=== PATIENT | female | born 1980 | race Caucasian/White ===

== ENCOUNTER 2018-09-15 01:15 | Inpatient (IN) | payer BC ==
[2018-09-15] MEDS ORDERED: METHYLPREDNISOLONE INJ 125 MG/2 ML SDV IV ONE (02:40)
[2018-09-15] MEDS ORDERED: NORMAL SALINE 1000 ML 1,000 ML IV ONE (02:40)
[2018-09-15] MEDS ORDERED: IPRATROPIUM/ALBUTEROL 0.5-2.5 MG/3 ML AMPUL NEB ONE ×2 (02:41→04:28)
[2018-09-15] MEDS: MAGNESIUM SULFATE/D5W 1 GM/100 ML RTUPB IV SCH ×2 (03:22→04:05)
[2018-09-15 03:26] LABS: ABSOLUTE BASOPHILS # (AUTO) 0.1 10^3/uL (0.0-0.2); ABSOLUTE EOSINOPHILS # (AUTO) 0.7 10^3/uL (0.0-0.6); ABSOLUTE LYMPHOCYTES (AUTO) 2.1 10^3/uL (0.5-4.7); ABSOLUTE MONOCYTES (AUTO) 0.9 10^3/uL (0.1-1.4); ABSOLUTE NEUT (AUTO) 9.2 10^3/uL (1.7-8.2); BASOPHILS % (AUTO) 0.7 % (0-2); EOSINOPHILS % (AUTO) 5.2 % (0-6); HEMATOCRIT 42.3 % (36.0-47.0); HEMOGLOBIN 14.7 g/dL (12.0-15.5); LYMPHOCYTES % (AUTO) 15.9 % (13-45); MEAN CORPUSCULAR HEMOGLOBIN 32.1 pg (27.0-33.4); MEAN CORPUSCULAR HGB CONC 34.7 g/dL (32.0-36.0); MEAN CORPUSCULAR VOLUME 92 fl (80-97); MONOCYTES % (AUTO) 7.2 % (3-13); PLATELET COUNT 410 10^3/uL (150-450); RED BLOOD COUNT 4.58 10^6/uL (3.72-5.28); RED CELL DISTRIBUTION WIDTH 14.4 % (11.5-14.0); TOTAL CELLS COUNTED % (AUTO) 100 %; WHITE BLOOD COUNT 12.9 10^3/uL (4.0-10.5)
--- NOTE | 2018-09-15 03:56 | RADIOLOGY REPORT (SQ) ---
EXAM DESCRIPTION: XR CHEST 2 VIEWS COMPLETED DATE/TME: 09/15/2018 02:40 CLINICAL HISTORY: 37 years, Female, wheezing diffiuclty breathing COMPARISON: None. NUMBER OF VIEWS: 2 TECHNIQUE: Frontal and lateral views of the chest LIMITATIONS: None. FINDINGS: Heart size is normal. Lungs are clear. No pneumothorax IMPRESSION: Negative chest 2010 [facility] [employer]- All Rights Reserved
[2018-09-15 04:20] LABS: ANION GAP 14 (5-19); BLOOD UREA NITROGEN 12 mg/dL (7-20); CALCIUM 9.8 mg/dL (8.4-10.2); CARBON DIOXIDE 33 mmol/L (22-30); CHLORIDE 94 mmol/L (98-107); GLUCOSE 105 mg/dL (75-110); POTASSIUM 4.1 mmol/L (3.6-5.0); SODIUM 141.4 mmol/L (137-145)
[2018-09-15] MEDS ORDERED: ACETAMINOPHEN 325 MG TABLET PO ONE (04:25)
[2018-09-15] MEDS ORDERED: OSELTAMIVIR PHOSPHATE 75 MG CAPSULE PO ONE (04:59)
[2018-09-15 05:01] LABS: A TYPE INFLUENZA AG NEGATIVE (NEGATIVE); B INFLUENZA AG NEGATIVE (NEGATIVE)
--- NOTE | 2018-09-15 05:01 | ER Document Report ---
ED General - General Chief Complaint: Flu Symptoms Stated Complaint: FLU LIKE SYMPTOMS Time Seen by Provider: 09/15/18 02:17 Notes: Patient is a 37-year-old female presents with complaint of difficulty breathing and wheezing. Patient has history of asthma. She says for about a week she has been sick with what has been like flulike symptoms. She with urgent care today. She was evaluated told she had flu but she was outside the window for Tamiflu. She went home and then denies to have worsening difficulty breathing not responding to inhaler. She comes in with distress and hypoxia and feeling very short of breath. She also has a history of hypertension. She is followed by [facility] and [place]. TRAVEL OUTSIDE OF THE [place] IN LAST 30 DAYS: No - Related Data Allergies/Adverse Reactions: No Known Allergies Allergy (Unverified 09/15/18 01:19) Past Medical History - Social History Smoking Status: Never Smoker Frequency of alcohol use: None Drug Abuse: None Family History: Reviewed & Not Pertinent Patient has suicidal ideation: No Patient has homicidal ideation: No - Past Medical History Cardiac Medical History: Reports: Hx Hypertension Renal/ Medical History: Denies: Hx Peritoneal Dialysis Past Surgical History: Reports: Hx Oral Surgery Physical Exam - Vital signs Vitals: Temp Pulse Resp BP Pulse Ox 98.2 F 78 18 130/76 H 90 L 09/15/18 01:19 09/15/18 01:19 09/15/18 01:19 09/15/18 01:19 09/15/18 01:19 Course - Re-evaluation Re-evalutation: 09/15/18 04:55 Reevaluate the patient after initial breathing treatments. Her oxygenation was better but she still had increased work of breathing and diffuse wheezing. Give another breathing treatment. Her wheezing is improving now. She still has some increased work of breathing but is not quite as bad as it was before. Her oxygen saturations about 93% at rest. She still does not look to the point where I feel comfortable discharging her home as she still has some increased work of breathing and still has some wheezing diffusely. She does look much better than when she first arrived as she was in significant distress when she first arrived and was hypoxic. I will consult the hospitalist for consideration for admission. 09/15/18 04:59 I spoke with the hospitalist, Dr. Jean, agrees to admit the patient. He does recommend giving Tamiflu. I have ordered the Tamiflu. I did speak with the patient agrees with admission. Dictation of this chart was performed using voice recognition software; therefore, there may be some unintended grammatical errors. 09/15/18 05:00 - Vital Signs Vital signs: Temp Pulse Resp BP Pulse Ox 102.4 F H 78 23 H 147/78 H 94 09/15/18 04:22 09/15/18 01:19 09/15/18 04:22 09/15/18 04:22 09/15/18 04:22 - Laboratory Result Diagrams: 09/15/18 03:15 09/15/18 03:15 Laboratory results interpreted by me: 09/15/18 09/15/18 03:15 03:15 WBC 12.9 H RDW 14.4 H Absolute Neutrophils 9.2 H Absolute Eosinophils 0.7 H Chloride 94 L Carbon Dioxide 33 H Discharge - Discharge Clinical Impression: Wheezing, Respiratory distress Fever Qualifiers: Fever type: unspecified Qualified Code(s): R50.9 - Fever, unspecified Condition: Stable Disposition: ADMITTED OBSERVATION Admitting Provider: Hospitalist Unit Admitted: Telemetry Referrals: CARLEEN PENN MD [Primary Care Provider] - Follow up as needed
[2018-09-15] MEDS ORDERED: HYDRALAZINE HCL INJ/PF 20 MG/1 ML SDV IV PRN (05:05)
[2018-09-15] MEDS ORDERED: CHLORPHENIRAMINE MALEATE 4 MG TABLET PO ONE (05:05)
[2018-09-15] MEDS ORDERED: ACETAMINOPHEN 325 MG TABLET PO PRN (05:06)
[2018-09-15] MEDS ORDERED: GUAIFENESIN SYRP 200 MG/10 ML UDC PO PRN (05:06)
[2018-09-15] MEDS ORDERED: IPRATROPIUM/ALBUTEROL 0.5-2.5 MG/3 ML AMPUL NEB PRN (05:06)
[2018-09-15] MEDS ORDERED: FLUTICASONE NASAL SPRAY 50 MCG/SPRY 120 SPRAY/16 GM NASL ONE (05:45)
[2018-09-15] MEDS: HEPARIN SOD (PORCINE) 5,000 UNIT/ML 1 ML SYRINGE SUBCUT SCH ×3 (06:04→21:57)
--- NOTE | 2018-09-15 06:29 | PDOC H&P ---
History of Present Illness Admission Date/PCP: 09/15/18 05:12 CARLEEN PENN MD Patient complains of: Shortness of breath and diffuse joint pain History of Present Illness: JEANNETTE SHEETS is a 37 year old female with a past medical history of obesity, hypertension, hypothyroidism and asthma. Patient presents with 48 hours of rhinorrhea, sore throat, headache, muscle, joint pain and shortness of breath. Patient developed fever prompting her to seek evaluation emergency room where she is found to have fever of 102.4, oxygen saturations of 87% on room air wheeze and cough. She is treated for influenza and community-acquired pneumonia then referred to the hospitalist for admission. Patient denies antibiotics or recent influenza vaccination. Past Medical History Cardiac Medical History: Reports: Hypertension Endocrine Medical History: Reports: Obesity Psychiatric Medical History: Reports: Bipolar Disorder Social History Information Source: Patient, Emergency Med Personnel Smoking Status: Never Smoker Frequency of Alcohol Use: None Drugs: None - Advance Directive Resuscitation Status: Full Code Family History Family History: COPD Parental Family History Reviewed: Yes Children Family History Reviewed: Yes Sibling(s) Family History Reviewed.: Yes Medication/Allergy Allergies/Adverse Reactions: No Known Allergies Allergy (Unverified 09/15/18 01:19) Review of Systems Constitutional: PRESENT: as per HPI, anorexia, chills, fatigue, fever(s), headache(s). ABSENT: night sweats Eyes: ABSENT: visual disturbances Ears: ABSENT: hearing changes Cardiovascular: ABSENT: chest pain, dyspnea on exertion, edema, orthropnea, palpitations Respiratory: PRESENT: as per HPI, cough, dyspnea. ABSENT: hemoptysis, sputum Gastrointestinal: ABSENT: abdominal pain, constipation, diarrhea, hematemesis, hematochezia, nausea, vomiting Genitourinary: ABSENT: dysuria, hematuria Musculoskeletal: PRESENT: as per HPI, back pain, other - Diffuse joint pain. ABSENT: joint swelling Integumentary: ABSENT: rash, wounds Neurological: ABSENT: abnormal gait, abnormal speech, confusion, dizziness, focal weakness, syncope Psychiatric: ABSENT: anxiety, depression, homidical ideation, suicidal ideation Endocrine: ABSENT: cold intolerance, heat intolerance, polydipsia, polyuria Hematologic/Lymphatic: ABSENT: easy bleeding, easy bruising Physical Exam Vital Signs: Temp Pulse Resp BP Pulse Ox 102.4 F H 78 23 H 147/78 H 94 09/15/18 04:22 09/15/18 01:19 09/15/18 04:22 09/15/18 04:22 09/15/18 04:22 Intake & Output 09/13/18 09/14/18 09/15/18 11:59 11:59 11:59 Intake Total 1000 Balance 1000 General appearance: PRESENT: cooperative, mild distress, obese. ABSENT: hard of hearing Head exam: PRESENT: atraumatic, normocephalic Eye exam: PRESENT: conjunctiva pink, EOMI, PERRLA. ABSENT: scleral icterus Ear exam: PRESENT: normal external ear exam Mouth exam: PRESENT: moist, tongue midline Teeth exam: PRESENT: dental caries, poor dentation Neck exam: ABSENT: carotid bruit, JVD, lymphadenopathy, thyromegaly Respiratory exam: PRESENT: accessory muscle use, crackles, prolonged expiratory phas, rales, retraction, rhonchi, symmetrical, tachypnea, wheezes Cardiovascular exam: PRESENT: RRR, +S2, tachycardia Pulses: PRESENT: normal dorsalis pedis pul Vascular exam: PRESENT: normal capillary refill GI/Abdominal exam: PRESENT: normal bowel sounds, soft. ABSENT: distended, guarding, mass, organolmegaly, rebound, tenderness Rectal exam: PRESENT: deferred Extremities exam: PRESENT: full ROM. ABSENT: calf tenderness, clubbing, pedal edema Psychiatric exam: PRESENT: appropriate affect, normal mood. ABSENT: homicidal ideation, suicidal ideation Skin exam: PRESENT: dry, intact, warm. ABSENT: cyanosis, rash Results Impressions: Chest X-Ray 09/15/18 02:40 IMPRESSION: Negative chest 2010 [facility] [employer]- All Rights Reserved Assessment & Plan - Diagnosis (1) Pneumonia Is this a current diagnosis for this admission?: Yes Plan: Likely influenza with superimposed bacterial pneumonia from a maxillary sinus source, Tamiflu, influenza care set, follow-up CBC and culture (2) Influenza Is this a current diagnosis for this admission?: Yes Plan: Empiric Tamiflu, symptomatic management follow-up influenza (3) Asthma exacerbation Is this a current diagnosis for this admission?: Yes Plan: Albuterol and Atrovent, supplemental oxygen, low-dose steroids as needed - Time Time Spent: 50 to 70 Minutes - Inpatient Certification Medical Necessity: Need Close Monitoring Due to Risk of Patient Decompensation
[2018-09-15] MEDS: IPRATROPIUM/ALBUTEROL 0.5-2.5 MG/3 ML AMPUL NEB SCH ×3 (08:43→23:45)
[2018-09-15] MEDS: PREDNISONE 20 MG TABLET PO SCH ×2 (10:29→17:59)
[2018-09-15] MEDS: LEVOFLOXACIN 750 MG/D5W RTU 750 MG/150 ML RTUPB IV SCH (10:31)
[2018-09-15] MEDS: OSELTAMIVIR PHOSPHATE 75 MG CAPSULE PO SCH ×2 (10:39→17:59)
[2018-09-15] MEDS: FLUTICASONE NASAL SPRAY 50 MCG/SPRY 120 SPRAY/16 GM NASL SCH (21:57)
[2018-09-16] MEDS: HEPARIN SOD (PORCINE) 5,000 UNIT/ML 1 ML SYRINGE SUBCUT SCH ×3 (06:44→21:33)
[2018-09-16 07:02] LABS: MEAN CORPUSCULAR HEMOGLOBIN 30.9 pg (27.0-33.4); MEAN CORPUSCULAR HGB CONC 33.6 g/dL (32.0-36.0); MEAN CORPUSCULAR VOLUME 92 fl (80-97); PLATELET COUNT 364 10^3/uL (150-450); RED CELL DISTRIBUTION WIDTH 14.5 % (11.5-14.0); WHITE BLOOD COUNT 21.1 10^3/uL (4.0-10.5)
[2018-09-16 07:04] LABS: HEMOGLOBIN 11.7 g/dL (12.0-15.5)
[2018-09-16 07:06] LABS: ABSOLUTE LYMPHOCYTES# (MANUAL) 1.9 10^3/uL (0.5-4.7); ABSOLUTE MONOCYTES # (MANUAL) 0.4 10^3/uL (0.1-1.4); ABSOLUTE NEUTROPHILS# (MANUAL) 18.8 10^3/uL (1.7-8.2); BASOPHILS % (MANUAL) 0 % (0-2); EOSINOPHILS % (MANUAL) 0 % (0-6); LYMPHOCYTES % (MANUAL) 9 % (13-45); MONOCYTES % (MANUAL) 2 % (3-13); SEGMENTED NEUTROPHILS % (MAN) 89 % (42-78); TOTAL CELLS COUNTED 100
[2018-09-16 07:07] LABS: OVALOCYTES SLIGHT; PLATELET COMMENT ADEQUATE; POIKILOCYTOSIS SLIGHT; TOXIC GRANULATION SLIGHT
[2018-09-16 07:16] LABS: ANION GAP 13 (5-19); BLOOD UREA NITROGEN 12 mg/dL (7-20); CALCIUM 9.4 mg/dL (8.4-10.2); CARBON DIOXIDE 28 mmol/L (22-30); CHLORIDE 98 mmol/L (98-107); GLUCOSE 122 mg/dL (75-110); POTASSIUM 4.8 mmol/L (3.6-5.0)
[2018-09-16] MEDS: IPRATROPIUM/ALBUTEROL 0.5-2.5 MG/3 ML AMPUL NEB SCH ×2 (08:32→16:17)
--- NOTE | 2018-09-16 10:29 | RADIOLOGY REPORT (SQ) ---
EXAM DESCRIPTION: CHEST 2 VIEWS COMPLETED DATE/TIME: 09/16/2018 9:50 am REASON FOR STUDY: sob COMPARISON: None. EXAM PARAMETERS: NUMBER OF VIEWS: two views TECHNIQUE: Digital Frontal and Lateral radiographic views of the chest acquired. RADIATION DOSE: NA LIMITATIONS: none FINDINGS: LUNGS AND PLEURA: No opacities, masses or pneumothorax. No pleural effusion. MEDIASTINUM AND HILAR STRUCTURES: No masses or contour abnormalities. HEART AND VASCULAR STRUCTURES: Heart normal size. No evidence for failure. BONES: No acute findings. HARDWARE: None in the chest. OTHER: No other significant finding. IMPRESSION: NO ACUTE RADIOGRAPHIC FINDING IN THE CHEST. TECHNICAL DOCUMENTATION: JOB ID: [id number] [employer]- All Rights Reserved Reading location - IP/workstation name: [email or web address]
[2018-09-16] MEDS: LEVOFLOXACIN 750 MG/D5W RTU 750 MG/150 ML RTUPB IV SCH (11:20)
[2018-09-16] MEDS: PREDNISONE 20 MG TABLET PO SCH (11:21)
[2018-09-16] MEDS: OSELTAMIVIR PHOSPHATE 75 MG CAPSULE PO SCH ×2 (11:21→18:51)
[2018-09-16] MEDS: FLUTICASONE NASAL SPRAY 50 MCG/SPRY 120 SPRAY/16 GM NASL SCH ×2 (11:22→21:33)
--- NOTE | 2018-09-16 11:40 | PDOC PROGRESS REPORT ---
Subjective Progress Note for:: 09/16/18 Subjective:: Patient was seen and examined. She currently feels a lot better. She still on oxygen. Repeat x-ray today still shows no infiltrates. Rapid influenza test is negative. Influenza antibody assay is pending. White count significantly increased today possibly due to steroids. She was also tachycardic on exam which she attributed to inhaled beta agonist and chronic mild tachycardia. Reason For Visit: ASTHMA EXACERBATION FLU PNEUMONIA Physical Exam Vital Signs: Temp Pulse Resp BP Pulse Ox 98.2 F 102 H 16 140/79 H 93 09/16/18 07:28 09/16/18 08:33 09/16/18 08:33 09/16/18 07:28 09/16/18 08:33 Intake & Output 09/15/18 09/16/18 09/17/18 06:59 06:59 06:59 Intake Total 1000 2304 354 Output Total 1300 900 Balance 1000 1004 -546 Weight 244 lb 4.355 oz General appearance: PRESENT: no acute distress, cooperative Head exam: PRESENT: atraumatic, normocephalic Eye exam: PRESENT: EOMI. ABSENT: conjunctival injection Ear exam: ABSENT: bleeding, drainage Neck exam: ABSENT: JVD, meningismus, tenderness Respiratory exam: PRESENT: clear to auscultation conrado. ABSENT: accessory muscle use Cardiovascular exam: PRESENT: RRR. ABSENT: diastolic murmur, systolic murmur GI/Abdominal exam: PRESENT: normal bowel sounds, soft. ABSENT: ascites, tenderness Rectal exam: PRESENT: deferred Extremities exam: ABSENT: pedal edema Neurological exam: PRESENT: alert, altered, awake, oriented to person, oriented to place, oriented to time, oriented to situation Results Laboratory Results: 09/16/18 05:25 09/16/18 05:25 09/16/18 09/16/18 05:25 05:25 WBC 21.1 H RBC 3.80 Hgb 11.7 L D Hct 35.0 L MCV 92 MCH 30.9 MCHC 33.6 RDW 14.5 H Plt Count 364 Seg Neutrophils % Not Reportable Lymphocytes % Not Reportable Monocytes % Not Reportable Eosinophils % Not Reportable Basophils % Not Reportable Absolute Neutrophils Not Reportable Absolute Lymphocytes Not Reportable Absolute Monocytes Not Reportable Absolute Eosinophils Not Reportable Absolute Basophils Not Reportable Sodium 139.0 Potassium 4.8 Chloride 98 Carbon Dioxide 28 Anion Gap 13 BUN 12 Creatinine 0.69 Est GFR ( Amer) > 60 Est GFR (Non-Af Amer) > 60 Glucose 122 H Calcium 9.4 Impressions: Chest X-Ray 09/16/18 06:00 IMPRESSION: NO ACUTE RADIOGRAPHIC FINDING IN THE CHEST. Assessment & Plan - Diagnosis (1) Asthma exacerbation Is this a current diagnosis for this admission?: Yes Plan: Most likely exacerbated by, cold or possibly influenza She is being treated empirically for influenza with Tamiflu She was started IV Solu-Medrol in the emergency room and continued on 40 mg prednisone White count increased to 21,000 today Decreased prednisone to 20 mg daily and continue inhaled treatments Wean oxygen as tolerated (2) Fever Qualifiers: Fever type: unspecified Qualified Code(s): R50.9 - Fever, unspecified Is this a current diagnosis for this admission?: Yes Plan: Resolved (3) Influenza Is this a current diagnosis for this admission?: Yes Plan: Being treated empirically with Tamiflu Rapid influenza test is negative, influenza antibody assay is pending (4) Respiratory distress Is this a current diagnosis for this admission?: Yes Plan: Currently improved Wean oxygen as needed (5) Wheezing Is this a current diagnosis for this admission?: Yes Plan: Improved Continue respiratory treatments
[2018-09-17] MEDS: IPRATROPIUM/ALBUTEROL 0.5-2.5 MG/3 ML AMPUL NEB SCH ×2 (00:11→08:39)
[2018-09-17] MEDS: HEPARIN SOD (PORCINE) 5,000 UNIT/ML 1 ML SYRINGE SUBCUT SCH (05:33)
[2018-09-17 06:02] LABS: ABSOLUTE BASOPHILS # (AUTO) 0.1 10^3/uL (0.0-0.2); ABSOLUTE LYMPHOCYTES (AUTO) 3.8 10^3/uL (0.5-4.7); ABSOLUTE MONOCYTES (AUTO) 0.9 10^3/uL (0.1-1.4); ABSOLUTE NEUT (AUTO) 12.8 10^3/uL (1.7-8.2); BASOPHILS % (AUTO) 0.4 % (0-2); EOSINOPHILS % (AUTO) 0.1 % (0-6); HEMATOCRIT 35.2 % (36.0-47.0); HEMOGLOBIN 11.9 g/dL (12.0-15.5); LYMPHOCYTES % (AUTO) 21.5 % (13-45); MEAN CORPUSCULAR HEMOGLOBIN 31.2 pg (27.0-33.4); MEAN CORPUSCULAR HGB CONC 33.8 g/dL (32.0-36.0); MEAN CORPUSCULAR VOLUME 93 fl (80-97); MONOCYTES % (AUTO) 5.3 % (3-13); PLATELET COUNT 318 10^3/uL (150-450); RED BLOOD COUNT 3.81 10^6/uL (3.72-5.28); RED CELL DISTRIBUTION WIDTH 14.6 % (11.5-14.0); SEGMENTED NEUTROPHILS % (AUTO) 72.7 % (42-78); TOTAL CELLS COUNTED % (AUTO) 100 %; WHITE BLOOD COUNT 17.6 10^3/uL (4.0-10.5)
[2018-09-17 06:22] LABS: ANION GAP 13 (5-19); BLOOD UREA NITROGEN 17 mg/dL (7-20); CARBON DIOXIDE 28 mmol/L (22-30); CHLORIDE 99 mmol/L (98-107); GLUCOSE 78 mg/dL (75-110); POTASSIUM 4.6 mmol/L (3.6-5.0); SODIUM 139.8 mmol/L (137-145)
--- NOTE | 2018-09-17 09:08 | PDOC DISCHARGE SUMMARY ---
General - Admit/Disc Date/PCP Admission Date/Primary Care Provider: 09/15/18 05:12 CARLEEN PENN MD Discharge Date: 09/17/18 - Discharge Diagnosis (1) Asthma exacerbation Is this a current diagnosis for this admission?: Yes (2) Fever Is this a current diagnosis for this admission?: Yes (3) Influenza Is this a current diagnosis for this admission?: Yes (4) Respiratory distress Is this a current diagnosis for this admission?: Yes (5) Wheezing Is this a current diagnosis for this admission?: Yes - Additional Information Resuscitation Status: Full Code Discharge Diet: Cardiac Discharge Activity: Activity As Tolerated Prescriptions: Oseltamivir Phosphate [Tamiflu 75 mg Capsule] 75 mg PO BID #6 capsule Prednisone [Deltasone 20 mg Tablet] 20 mg PO DAILY #2 tablet Home Medications: Albuterol Sulfate [Proair HFA Inhalation Aerosol 8.5 gm MDI] 2 puff IH Q4HP PRN 09/15/18 Alprazolam [Xanax 0.5 mg Tablet] 0.5 mg PO Q8HP PRN MDD 3 TABS 09/15/18 Amlodipine Besylate [Norvasc 10 mg Tablet] 10 mg PO DAILY MDD may take 1/2 tab 09/15/18 Citalopram Hydrobromide [Celexa 20 mg Tablet] 30 mg PO DAILY 09/15/18 Divalproex Sodium [Depakote] 500 mg PO Q12 09/15/18 Hydrochlorothiazide [Hydrodiuril 25 mg Tablet] 25 mg PO QAM 09/15/18 Levothyroxine Sodium [Synthroid 0.1 mg Tablet] 0.2 mg PO Q6AM 09/15/18 Lisinopril [Prinivil 10 mg Tablet] 10 mg PO DAILY 09/15/18 Metoprolol Tartrate [Lopressor 50 mg Tablet] 50 mg PO Q12 09/15/18 Zolpidem Tartrate [Ambien 5 mg Tablet] 10 mg PO QHS 09/15/18 Oseltamivir Phosphate [Tamiflu 75 mg Capsule] 75 mg PO BID #6 capsule 09/17/18 Prednisone [Deltasone 20 mg Tablet] 20 mg PO DAILY #2 tablet 09/17/18 History of Present Illness History of Present Illness: JEANNETTE SHEETS is a 37 year old female with a past medical history of obesity, hypertension, hypothyroidism and asthma. Patient presents with 48 hours of rhinorrhea, sore throat, headache, muscle, joint pain and shortness of breath. Patient developed fever prompting her to seek evaluation emergency room where she is found to have fever of 102.4, oxygen saturations of 87% on room air wheeze and cough. She is treated for influenza and community-acquired pneumonia then referred to the hospitalist for admission. Patient denies antibiotics or recent influenza vaccination. Hospital Course Hospital Course: Patient was treated with steroids, antibiotics, Tamiflu. Chest x-ray was negative for infiltrates and antibiotics were stopped. She started IV Solu- Medrol in the emergency room and continued prednisone on admission. Rapid influenza test that was negative but she was continued on Tamiflu due to high suspicious of influenza. She also received inhaled treatments. Patient significantly improved her white count initially increased likely due to steroids but then improved. She continued to be afebrile during hospitalization. She was on oxygen initially which was weaned down and she was doing very good without any oxygen. She is stable for discharge and she would like to go home today. Continue and finish course of Tamiflu. Antibiotics stopped. She also was given a prescription for prednisone for a couple more days to finish outpatient. Physical Exam Vital Signs: Temp Pulse Resp BP Pulse Ox 98.2 F 88 16 163/86 H 90 L 09/16/18 23:31 09/17/18 08:41 09/17/18 08:41 09/16/18 23:31 09/17/18 08:41 Intake & Output 09/16/18 09/17/18 09/18/18 06:59 06:59 06:59 Intake Total 2304 1066 Output Total 1300 2300 Balance 1004 -1234 Weight 244 lb 4.355 oz 253 lb 1.451 oz General appearance: PRESENT: no acute distress, cooperative, obese Head exam: PRESENT: atraumatic, normocephalic Eye exam: ABSENT: conjunctival injection Ear exam: ABSENT: bleeding, drainage Neck exam: ABSENT: meningismus, tenderness, thyromegaly, tracheostomy Respiratory exam: PRESENT: clear to auscultation conrado. ABSENT: accessory muscle use Cardiovascular exam: PRESENT: RRR. ABSENT: diastolic murmur, systolic murmur Pulses: PRESENT: normal radial pulses GI/Abdominal exam: PRESENT: normal bowel sounds, soft. ABSENT: ascites, tenderness Musculoskeletal exam: PRESENT: ambulatory Neurological exam: PRESENT: alert, altered, awake, oriented to person, oriented to place, oriented to time, oriented to situation Results Laboratory Results: 09/17/18 04:54 09/17/18 04:54 09/17/18 09/17/18 04:54 04:54 WBC 17.6 H RBC 3.81 Hgb 11.9 L Hct 35.2 L MCV 93 MCH 31.2 MCHC 33.8 RDW 14.6 H Plt Count 318 Seg Neutrophils % 72.7 Lymphocytes % 21.5 Monocytes % 5.3 Eosinophils % 0.1 Basophils % 0.4 Absolute Neutrophils 12.8 H Absolute Lymphocytes 3.8 Absolute Monocytes 0.9 Absolute Eosinophils 0.0 Absolute Basophils 0.1 Sodium 139.8 Potassium 4.6 Chloride 99 Carbon Dioxide 28 Anion Gap 13 BUN 17 Creatinine 0.75 Est GFR ( Amer) > 60 Est GFR (Non-Af Amer) > 60 Glucose 78 Calcium 9.0 Impressions: Chest X-Ray 09/16/18 06:00 IMPRESSION: NO ACUTE RADIOGRAPHIC FINDING IN THE CHEST. Qualifiers - * PATIENT BEING DISCHARGED WITH ANY OF THE FOLLOWING DIAGNOSIS: No
[2018-09-17] MEDS: OSELTAMIVIR PHOSPHATE 75 MG CAPSULE PO SCH (09:13)
[2018-09-17] MEDS: FLUTICASONE NASAL SPRAY 50 MCG/SPRY 120 SPRAY/16 GM NASL SCH (09:13)
[2018-09-17] MEDS ORDERED: PREDNISONE 20 MG TABLET PO SCH (10:00)
--- NOTE | 2018-09-17 12:12 | Physician Advisory Note ---
Physician Advisor ProgressNote .: Pursuant to the plan for [facility], I have reviewed the medical record for this patient. Physician Advisor Statement: Pt had sats as low as 87% RA & 91% on 2L O2 (persistently through the 2nd day, too) in association w/resp distress & labored breathing, with no prior O2 need at baseline. Please consider documenting, if you agree: 1. "Acute Hypoxemic REspiratory Failure, evidenced by increased work of breathing in association w/hypoxemia in ED" 2. Medical necessity: if you spelled out the "continued hypoxemia" (not just still on O2, without needing it, the 2nd day because nobody had felt like removing it), +/- other evidence of instability that prevented safe d/c on 09/15 , then payer will have less potential for inappropriately denying Inpatient status in this case. 3. Please state specifics of type asthma (see reference below prn) so coders can skip a query. Thanks! CK Dx References: Dx of type of asthma is based on worst category in which pt has at least 1 of following s/s present at baseline: A. Mild Intermittent: only needs albuterol occasionally. B. Mild Persistent: sx >2x/wk, nocturnal sx up to 4x/mo, FEV1 80+% predicted C. Mod Persistent: sx (or albuterol) daily, nocturnal sx >1x/wk, FEV1 60-80% predicted D. Severe Persistent: activities curtailed, frequent exacerbations, noct sx frequent, FEV1 <60% predicted. Acute Respiratory Failure = (A) Documented difficulty breathing + (B) Hypoxemia* - Hypoxemia alone is not sufficient for the dx, although certainly indicates one should consider it. A. Difficulty breathing: Pt should show signs of resp distress (even if mild), such as use of accessory muscles/retractions, tripoding, inability to speak full sentences, central cyanosis, tachypnea, and can also be supported by decreased level of consciousness. - Stating pt has SOB/coughing/wheezing (sx), when PE states NAD or gives no mention of any of above signs, is not typically sufficient to support this part of the dx. B. Acute Hypoxemia: PO2 <60mmHg or O2 sat <88-91% on RA or P/F ratio <300. (*May substitute hypercarbia [ pCO2>50mmHg] with pH <7.35; or, if pt has chronic resp failure, then a 10-15mmHg drop in baseline PO2 at same level of O2 , or a 10mmHg increase in pCO2 from baseline.) Ref: [email or web address] same of 10/2009, 04/2010, 05/2011, 2012, 09/2013.
[2018-09-17 12:55] VITALS: BP 139/79
[2018-09-18 08:22] LABS: INFLUENZA B AB (SERUM) CF Negative (Neg:<1:8)
== END 2018-09-17 12:00 | disposition home or self-care (01) | DRG 194 ==
LOC: ER 01:15 → OBSVTOIN 05:12 → EH 05:12 → 4N 07:31
PROVIDERS: ADMIT Internal Medicine; ATTEND Internal Medicine
PROC: 3E0F73Z Introduction of Anti-inflammatory into Respiratory Tract, Via Natural or Artificial Opening (ICD-10-PCS; principal; 2018-09-15)
DX: J15.9 Unspecified bacterial pneumonia (principal); Z68.41 Body mass index [BMI] 40.0-44.9, adult; J45.901 Unspecified asthma with (acute) exacerbation; E66.9 Obesity, unspecified; I10 Essential (primary) hypertension; E03.9 Hypothyroidism, unspecified; F31.9 Bipolar disorder, unspecified; R00.0 Tachycardia, unspecified; Z79.899 Other long term (current) drug therapy; Z83.6 Family history of other diseases of the respiratory system
CPT/HCPCS: 36415; 71046; 80048; 85025; 86710; 87804; 94640; 94799; 96361; 96365; 96375; 99285; J1644; J1956; J2930; J3475; J3490; J7030; J7512; J7620

== ENCOUNTER 2019-01-15 17:10 | Emergency (ER) | payer BC ==
--- NOTE | 2019-01-15 19:06 | RADIOLOGY REPORT (SQ) ---
EXAM DESCRIPTION: FOOT LEFT COMPLETE COMPLETED DATE/TIME: 01/15/2019 6:44 pm REASON FOR STUDY: pain chronic getting worse COMPARISON: None. NUMBER OF VIEWS: Three views. TECHNIQUE: AP, lateral and oblique radiographic images acquired of the left foot. LIMITATIONS: None. FINDINGS: MINERALIZATION: Normal. BONES: No acute fracture or dislocation. No worrisome bone lesions. Incidental note is made of calc aneal enthesopathy. JOINTS: No effusions. SOFT TISSUES: No soft tissue swelling. No foreign body. OTHER: No other significant finding. IMPRESSION: No evidence of acute osseous abnormality or significant degenerative change. TECHNICAL DOCUMENTATION: JOB ID: [id number] [employer]- All Rights Reserved Reading location - IP/workstation name: [email or web address]
--- NOTE | 2019-01-15 19:23 | ER Document Report ---
ED Extremity Problem, Lower - General Chief Complaint: Foot Pain Stated Complaint: FOOT PAIN Time Seen by Provider: 01/15/19 18:22 Primary Care Provider: CARLEEN PENN MD [Primary Care Provider] - Follow up as needed Mode of Arrival: Ambulatory Information source: Patient Notes: 38-year-old female presented to ED for complaint of left foot pain times several years. She went to her PCM today and they referred her to a transfer station operator. Patient states she recently moved to [facility] and was assigned to [facility] in [place]. She states that the foot is getting progressively worse and she wants to know why it is hurting and cannot stand till next week for the pain in her foot. I have explained to the patient that we can x-ray the foot and we can give her ibuprofen if she needs it but we do not treat chronic pain with narcotics unless it is warranted. Patient is alert oriented respirations regular and unlabored speaking in full sentences and is able to walk with a steady gait. She does states she does have arthritis in her hip and is on Mobic at this time. TRAVEL OUTSIDE OF THE [place] IN LAST 30 DAYS: No - HPI Patient complains to provider of: Pain, Swelling - Left foot Location: Foot Occurred: Other - Chronic times several years worse for the last couple weeks Onset/Duration: Gradual, Intermittent Quality of pain: Sharp Severity: Moderate Pain Level: 3 Context: Other - Chronic pain to the left foot Recent injury: No Associated symptoms: Painful ambulation Exacerbated by: Hanging down, Movement, Walking Relieved by: Nothing - Related Data Allergies/Adverse Reactions: acetaminophen [From Vicodin] Allergy (Verified 01/15/19 17:40) hydrocodone [From Vicodin] Allergy (Verified 01/15/19 17:40) Past Medical History - General Information source: Patient - Social History Smoking Status: Never Smoker Cigarette use (# per day): No Frequency of alcohol use: Rare Drug Abuse: None Occupation: ambulance attendant Family History: Reviewed & Not Pertinent, COPD Patient has suicidal ideation: No Patient has homicidal ideation: No - Past Medical History Cardiac Medical History: Reports: Hx Hypercholesterolemia, Hx Hypertension, Other - Tachycardia Pulmonary Medical History: Reports: None EENT Medical History: Reports: None Neurological Medical History: Reports: None Endocrine Medical History: Reports: Hx Hypothyroidism Renal/ Medical History: Reports: None Malignancy Medical History: Reports: None GI Medical History: Reports: None Musculoskeletal Medical History: Reports Hx Arthritis Skin Medical History: Reports None Psychiatric Medical History: Reports: Hx Anxiety, Hx Bipolar Disorder, Hx Depression Traumatic Medical History: Reports: None Infectious Medical History: Reports: None Past Surgical History: Reports: Hx Oral Surgery - Immunizations Immunizations up to date: Yes Hx Diphtheria, Pertussis, Tetanus Vaccination: Yes Review of Systems - Review of Systems Constitutional: No symptoms reported EENT: No symptoms reported Cardiovascular: No symptoms reported Respiratory: No symptoms reported Gastrointestinal: No symptoms reported Genitourinary: No symptoms reported Female Genitourinary: No symptoms reported Musculoskeletal: No symptoms reported Skin: No symptoms reported Hematologic/Lymphatic: No symptoms reported Neurological/Psychological: No symptoms reported -: Yes All other systems reviewed and negative Physical Exam - Vital signs Vitals: Temp Pulse Resp BP Pulse Ox 98.1 F 66 16 137/82 H 96 01/15/19 17:58 01/15/19 17:58 01/15/19 17:58 01/15/19 17:58 01/15/19 17:58 Interpretation: Normal - General General appearance: Appears well, Alert - HEENT Head: Normocephalic, Atraumatic Eyes: Normal Pupils: PERRL - Respiratory Respiratory status: No respiratory distress Chest status: Nontender Breath sounds: Normal Chest palpation: Normal - Cardiovascular Rhythm: Regular Heart sounds: Normal auscultation Murmur: No - Abdominal Inspection: Normal Distension: No distension Bowel sounds: Normal Tenderness: Nontender Organomegaly: No organomegaly - Back Back: Normal, Nontender - Extremities General upper extremity: Normal inspection, Nontender, Normal color, Normal ROM, Normal temperature General lower extremity: Normal inspection, Nontender, Normal color, Normal ROM, Normal temperature, Normal weight bearing. No: Ad's sign Foot: Tender, Metatarsal compress. pain, No evidence of FB. No: Abrasion, Deformity, Ecchymosis, Edema, Instability, Laceration, Nail injury, Navicular tenderness, Puncture wound, Tender 5th metatarsal, Unable to bear weight - Neurological Neuro grossly intact: Yes Cognition: Normal Orientation: AAOx4 [place] Coma Scale Eye Opening: Spontaneous [place] Coma Scale Verbal: Oriented [place] Coma Scale Motor: Obeys Commands [place] Coma Scale Total: 15 Speech: Normal Motor strength normal: LUE, RUE, LLE, RLE Sensory: Normal - Psychological Associated symptoms: Normal affect, Normal mood - Skin Skin Temperature: Warm Skin Moisture: Dry Skin Color: Normal Course - Re-evaluation Re-evalutation: 01/15/19 21:13 Discussed x-rays with patient and written report of x-ray was given to patient. Patient was instructed to please follow-up with orthopedics as instructed. Patient was instructed to please take her Mobic as instructed. She was also instructed on elevation warm packs or ice packs as it is comfortable. Patient was discharged home. - Vital Signs Vital signs: Temp Pulse Resp BP Pulse Ox 98.4 F 67 16 134/73 H 95 01/15/19 19:52 01/15/19 19:52 01/15/19 19:52 01/15/19 19:52 01/15/19 19:52 - Diagnostic Test Radiology reviewed: Image reviewed, Reports reviewed Discharge - Discharge Clinical Impression: Arthritis of foot, left Condition: Stable Disposition: HOME, SELF-CARE Additional Instructions: Enthesitis (enthesopathy) Enthesitis is a hallmark clinical feature of SpA (and also of psoriatic arthritis) . Enthesitis (or enthesopathy) refers to inflammation around the enthesis, which is the site of insertion of ligaments, tendons, joint capsule, or fascia to the surface of the bone, and is relatively specific to SpA . Although enthesitis is less common than peripheral arthritis, it is still present in about 50 percent of patients. The most noticeable clinical manifestation of enthesitis is swelling at the heels, either at the insertion of the Achilles tendon or at the insertion of the plantar fascia ligament into the calcaneus. It is usually associated with severe pain and tenderness. During physical examination, the patient often has difficulty walking on the heels when barefoot. Swelling at the side of the Achilles tendon may be appreciated when the patient is observed in the standing position from behind. On palpation, there is tenderness at the sites of insertion of the Achilles tendon and/or of the plantar fascia on the calcaneus. Other sites of enthesitis that don't become swollen, but which can be tender, include those at the iliac crests, greater trochanters, epicondyles at the elbows, tibial plateaus, costochondral junctions at the sternum, humeral tuberosities, manubrial-sternal joints, occiput, and spinous processes . FOLLOW-UP CARE: If you have been referred to a physician for follow-up care, call the physicians office for an appointment as you were instructed or within the next two days. If you experience worsening or a significant change in your symptoms, notify the physician immediately or return to the Emergency Department at any time for re-evaluation. Forms: Elevated Blood Pressure Referrals: CARLEEN PENN MD [Primary Care Provider] - Follow up as needed
[2019-01-15 19:54] VITALS: BP 134/73
== END 2019-01-15 19:54 | disposition home or self-care (01) ==
LOC: ER 17:10
DX: M19.072 Primary osteoarthritis, left ankle and foot (principal); M79.672 Pain in left foot; G89.29 Other chronic pain; M79.89 Other specified soft tissue disorders; I10 Essential (primary) hypertension; R00.0 Tachycardia, unspecified
CPT/HCPCS: 99283

== ENCOUNTER 2019-02-01 07:34 | Emergency (ER) | payer BC ==
[2019-02-01] MEDS ORDERED: IPRATROPIUM/ALBUTEROL 0.5-2.5 MG/3 ML AMPUL NEB ONE (08:06)
[2019-02-01] MEDS ORDERED: LIDOCAINE 1% INJ-PF (10 MG/ML) 30 ML SDV NEB ONE (08:06)
[2019-02-01] MEDS ORDERED: PREDNISONE 20 MG TABLET PO ONE (08:07)
--- NOTE | 2019-02-01 08:47 | RADIOLOGY REPORT (SQ) ---
EXAM DESCRIPTION: CHEST 2 VIEWS COMPLETED DATE/TIME: 02/01/2019 8:25 am REASON FOR STUDY: Wheezing, congested, cough COMPARISON: Two-view chest 09/16/2018, 09/15/2018 EXAM PARAMETERS: NUMBER OF VIEWS: two views TECHNIQUE: Digital Frontal and Lateral radiographic views of the chest acquired. RADIATION DOSE: NA LIMITATIONS: none FINDINGS: LUNGS AND PLEURA: No opacities, masses or pneumothorax. No pleural effusion. MEDIASTINUM AND HILAR STRUCTURES: No masses or contour abnormalities. HEART AND VASCULAR STRUCTURES: Heart normal size. No evidence for failure. BONES: No acute findings. HARDWARE: None in the chest. OTHER: No other significant finding. IMPRESSION: NO ACUTE RADIOGRAPHIC FINDING IN THE CHEST. TECHNICAL DOCUMENTATION: JOB ID: [id number] [employer]- All Rights Reserved Reading location - IP/workstation name: [email or web address]
[2019-02-01 08:51] LABS: ABSOLUTE BASOPHILS # (AUTO) 0.1 10^3/uL (0.0-0.2); ABSOLUTE EOSINOPHILS # (AUTO) 0.5 10^3/uL (0.0-0.6); ABSOLUTE LYMPHOCYTES (AUTO) 2.7 10^3/uL (0.5-4.7); ABSOLUTE MONOCYTES (AUTO) 1.1 10^3/uL (0.1-1.4); ABSOLUTE NEUT (AUTO) 7.6 10^3/uL (1.7-8.2); BASOPHILS % (AUTO) 0.6 % (0-2); EOSINOPHILS % (AUTO) 4.2 % (0-6); HEMATOCRIT 37.3 % (36.0-47.0); HEMOGLOBIN 12.6 g/dL (12.0-15.5); LYMPHOCYTES % (AUTO) 22.8 % (13-45); MEAN CORPUSCULAR HEMOGLOBIN 30.7 pg (27.0-33.4); MEAN CORPUSCULAR HGB CONC 33.7 g/dL (32.0-36.0); MEAN CORPUSCULAR VOLUME 91 fl (80-97); MONOCYTES % (AUTO) 9.2 % (3-13); PLATELET COUNT 347 10^3/uL (150-450); RED BLOOD COUNT 4.09 10^6/uL (3.72-5.28); RED CELL DISTRIBUTION WIDTH 14.4 % (11.5-14.0); SEGMENTED NEUTROPHILS % (AUTO) 63.2 % (42-78); TOTAL CELLS COUNTED % (AUTO) 100 %
[2019-02-01 09:08] LABS: ALANINE AMINOTRANSFERASE 13 U/L (9-52); ALBUMIN 3.9 g/dL (3.5-5.0); ALKALINE PHOSPHATASE 103 U/L (38-126); ANION GAP 10 (5-19); ASPARTATE AMINO TRANSFERASE 13 U/L (14-36); BILIRUBIN,DIRECT 0.2 mg/dL (0.0-0.4); BILIRUBIN,TOTAL 0.3 mg/dL (0.2-1.3); BLOOD UREA NITROGEN 8 mg/dL (7-20); CALCIUM 9.7 mg/dL (8.4-10.2); CARBON DIOXIDE 26 mmol/L (22-30); CHLORIDE 102 mmol/L (98-107); GLUCOSE 90 mg/dL (75-110); POTASSIUM 4.2 mmol/L (3.6-5.0); SODIUM 138.1 mmol/L (137-145); TOTAL PROTEIN 7.2 g/dL (6.3-8.2)
[2019-02-01 11:06] VITALS: BP 131/59
--- NOTE | 2019-02-01 14:01 | ER Document Report ---
Entered by TIFFANI ESTRADA SCRIBE 02/01/19 0817 Acting as scribe for:DEBBIE SALAZAR MD ED General - General Chief Complaint: Cold Symptoms Stated Complaint: COUGH/FEVER Time Seen by Provider: 02/01/19 07:56 Primary Care Provider: CARLEEN PENN MD [Primary Care Provider] - Follow up as needed Mode of Arrival: Ambulatory Information source: Patient Notes: Patient is a 38 year old female with HTN, HLD, asthma, hypothyroidism, anxiety, depression, bipolar disorder presents to the emergency department complaining of cough, fever, shortness of breath onset last night. Patient states " I feel like I can not get enough air". She also states she has chest and back pain when she coughs and complains of her voice being hoarse. She denies any fevers She also reports chronic left foot pain and swelling. Patient was recently admitted to the hospital on 09/15/2018 for pneumonia, influenza and asthma exacerbation. TRAVEL OUTSIDE OF THE [place] IN LAST 30 DAYS: No - Related Data Allergies/Adverse Reactions: acetaminophen [From Vicodin] Allergy (Verified 02/01/19 08:36) hydrocodone [From Vicodin] Allergy (Verified 02/01/19 08:36) Past Medical History - General Information source: Patient - Social History Smoking Status: Never Smoker Cigarette use (# per day): No Chew tobacco use (# tins/day): No Smoking Education Provided: No Frequency of alcohol use: None Family History: Reviewed & Not Pertinent, COPD - Past Medical History Cardiac Medical History: Reports: Hx Hypercholesterolemia, Hx Hypertension Endocrine Medical History: Reports: Hx Hypothyroidism Musculoskeletal Medical History: Reports Hx Arthritis Psychiatric Medical History: Reports: Hx Anxiety, Hx Bipolar Disorder, Hx Depression Past Surgical History: Reports: Hx Oral Surgery - Immunizations Immunizations up to date: Yes Hx Diphtheria, Pertussis, Tetanus Vaccination: Yes Review of Systems - Review of Systems Constitutional: No symptoms reported EENT: See HPI Cardiovascular: See HPI, Chest pain - with cough Respiratory: See HPI, Cough, Short of breath Gastrointestinal: No symptoms reported Genitourinary: No symptoms reported Female Genitourinary: No symptoms reported Musculoskeletal: See HPI Skin: No symptoms reported Hematologic/Lymphatic: No symptoms reported Neurological/Psychological: No symptoms reported -: Yes All other systems reviewed and negative Physical Exam - Vital signs Vitals: Temp Pulse Resp BP Pulse Ox 98.9 F 76 18 120/75 97 02/01/19 07:45 02/01/19 07:45 02/01/19 07:45 02/01/19 07:45 02/01/19 07:45 - Notes Notes: GENERAL: Alert, interacts well. No acute distress. HEAD: Normocephalic, atraumatic. EYES: Pupils equal, round, and reactive to light. Extraocular movements intact. ENT: Oral mucosa moist, tongue midline. Nares patent, no nasal septal hematoma, TM's intacts. NECK: Full range of motion. Supple. Trachea midline. LUNGS: Anterior chest wall tenderness to palpaiton. Wheezes and rhonchi with cough. Dry hoarse cough. No respiratory distress. HEART: Regular rate and rhythm. No murmurs, gallops, or rubs. ABDOMEN: Soft, non-tender. Non-distended. Bowel sounds present in all 4 quadrants. No guarding, rigidity, or rebound. EXTREMITIES: Moves all 4 extremities spontaneously. NEUROLOGICAL: Alert and oriented x3. Normal speech. PSYCH: Normal affect, normal mood. SKIN: Warm, dry, normal turgor. No rashes or lesions noted. Course - Re-evaluation Re-evalutation: 02/01/19 09:56 Patient was sound asleep and loudly snoring. It took a good amount of shaking her to wake her up. She has not been coughing and she does feel better. - Vital Signs Vital signs: Temp Pulse Resp BP Pulse Ox 98.9 F 76 18 120/75 97 02/01/19 07:45 02/01/19 07:45 02/01/19 07:45 02/01/19 07:45 02/01/19 07:45 - Laboratory Result Diagrams: 02/01/19 08:30 02/01/19 08:30 Laboratory results interpreted by me: 02/01/19 02/01/19 08:30 08:30 WBC 12.0 H RDW 14.4 H AST 13 L - Diagnostic Test Radiology reviewed: Image reviewed, Reports reviewed - Chest x-ray does not show any abnormalities. Discharge - Discharge Clinical Impression: Bronchitis, Laryngitis, Viral upper respiratory tract infection with cough Condition: Stable Disposition: HOME, SELF-CARE Additional Instructions: Viral Syndrome The physician has diagnosed a viral infection. Viruses not only cause "colds," but can cause many different symptoms including generalized aching, fever, headache, cough, diarrhea, nausea, vomiting, and fatigue. The treatment, for the most part, is simply relief of symptoms. This means that antibiotics are usually not given. Rest, fluids, pain medications and, occasionally, medication for the specific symptoms that are most bothersome will be prescribed. Use good handwashing to avoid passing the virus to others. Shared toys should be cleaned with disinfectant. Clean the toilets, sinks, and counter surfaces in bathrooms. Launder clothing in hot water. Contact the physician if you develop any new or unusual symptoms such as severe headache, stiff neck, high fever, chest pain, productive cough, or shortness of breath. You should be rechecked if you don't see marked improvement within seven to 10 days. Laryngitis You have laryngitis. This is an inflammation of the vocal cords which leads to inability to speak normally. Any irritation to the airway can cause laryngitis. Causes include virus infection, smoke inhalation, allergy, or even trauma due to excessive talking or shouting. Rest your voice. Any vibration of the vocal cords increases and prolongs the swelling. Humidity is helpful, especially cool mist. Avoid dust, chemical fumes, and smoke. Avoid decongestants and antihistamines -- these will make you worse. You can expect to recover completely in a few days. See the physician if new symptoms develop, such as high fever, productive cough, shortness of breath, or if you do not improve within a few days. Upper Respiratory Illness You have a viral infection of the respiratory passages -- a "cold." This common infection causes nasal congestion, drainage, and often sore throat and cough. It is caused by a virus and is highly contagious. The disease usually lasts a week or more, though the worst symptoms are usually over in 3 or 4 days. There is no "cure" for the viral infection -- it must run its course. If there is a complication, such as bacterial infection in the nose, sinuses, middle ear, or bronchial tubes, antibiotics may be required, but antibiotics won't affect the virus. If you smoke, you should STOP!! Drink plenty of fluids. A humidifier may help. An expectorant medication or decongestant may make you more comfortable. Use acetaminophen or ibuprofen for fever or aches. See the doctor if fever persists over two or three days, if there is any significant worsening of your symptoms, or if you simply fail to improve as expected. Drink plenty of fluids and get plenty of rest. Start the prednisone as prescribed tomorrow. Rest your voice is much as possible. Try something like Delsym DM to help control your cough. Follow-up with your doctor if not improving. RETURN TO THE EMERGENCY ROOM IF ANY NEW OR WORSENING SYMPTOMS. Prescriptions: Prednisone [Deltasone 10 mg Tablet] 10 mg PO ASDIR PRN #21 tablet PRN Reason: Forms: Return to Work Referrals: CARLEEN PENN MD [Primary Care Provider] - Follow up as needed Scribe Attestation: 02/01/19 08:30 I personally performed the services described in the documentation, reviewed and edited the documentation which was dictated to the scribe in my presence, and it accurately records my words and actions. I personally performed the services described in the documentation, reviewed and edited the documentation which was dictated to the scribe in my presence, and it accurately records my words and actions.
== END 2019-02-01 11:05 | disposition home or self-care (01) ==
LOC: ER 07:34
DX: J40 Bronchitis, not specified as acute or chronic (principal); R50.9 Fever, unspecified; J04.0 Acute laryngitis; I10 Essential (primary) hypertension; J06.9 Acute upper respiratory infection, unspecified; E03.9 Hypothyroidism, unspecified; E78.00 Pure hypercholesterolemia, unspecified; Z88.6 Allergy status to analgesic agent
CPT/HCPCS: 94640 ×2; 99284; 36415; 85025; 80053; 71046; J3490; J7512; J7620